=== PATIENT | female | born 1980 ===

== ENCOUNTER 2017-06-04 02:29 | Outpatient (CLI) | payer BC | END 2017-06-04 23:59 | disposition home or self-care (01) | LOC: DIABETIC 02:29 | PROVIDERS: ATTEND Surgery | DX: E66.01 Morbid (severe) obesity due to excess calories (principal) | CPT/HCPCS: 97802 ==

== ENCOUNTER 2017-06-12 03:50 | Outpatient (CLI) | payer BC | END 2017-06-12 23:59 | disposition home or self-care (01) | LOC: DIABETIC 03:50 | PROVIDERS: ATTEND Surgery | DX: E66.01 Morbid (severe) obesity due to excess calories (principal); K21.9 Gastro-esophageal reflux disease without esophagitis; Z98.84 Bariatric surgery status | CPT/HCPCS: 97802 ==

== ENCOUNTER 2017-07-27 04:57 | Outpatient (CLI) | payer BC | END 2017-07-27 23:59 | disposition home or self-care (01) | LOC: DIABETIC 04:57 | PROVIDERS: ATTEND Surgery | DX: E66.01 Morbid (severe) obesity due to excess calories (principal) | CPT/HCPCS: 97802 ==

== ENCOUNTER 2017-08-28 05:16 | Outpatient (CLI) | payer BC | END 2017-08-28 23:59 | disposition home or self-care (01) | LOC: DIABETIC 05:16 | PROVIDERS: ATTEND Surgery | DX: E66.01 Morbid (severe) obesity due to excess calories (principal) | CPT/HCPCS: 97802 ==